=== PATIENT | male | born 1995 ===

== ENCOUNTER 2020-07-05 13:34 | Emergency (ER) | payer OTHER ==
[2020-07-05 13:47] VITALS: BP 113/63
--- NOTE | 2020-07-05 16:15 | ER Document Report ---
HPI - HPI Time Seen by Provider: 07/05/20 14:14 Pain Level: 5 Notes: Otherwise healthy 24-year-old male presents with right hand pain that began just before arrival. He states that he did not injure the hand in any way. He states he started having pain in the hand and he feels like there is some swelling. He denies any fever, chills or any other abnormalities. He has not had this type of pain before. He did not take any medication for his pain prior to coming to the emergency department. He did not apply ice, heat or elevate. - ROS Systems Reviewed and Negative: Yes All other systems reviewed and negative - REPRODUCTIVE Reproductive: DENIES: : - MUSCULOSKELETAL Musculoskeletal: REPORTS: Extremity pain - Right hand Past Medical History - General Information source: Patient - Social History Smoking Status: Never Smoker Frequency of alcohol use: None Drug Abuse: None Family History: None Patient has homicidal ideation: No - Medical History Medical History: Negative Surgical Hx: Negative - Immunizations Immunizations up to date: Yes Vertical Provider Document - CONSTITUTIONAL Notes: PHYSICAL EXAMINATION: GENERAL: Well-appearing, well-nourished and in no acute distress. HEAD: Atraumatic, normocephalic. EYES: Pupils equal round extraocular movements intact, conjunctiva are normal. ENT: Nares patent NECK: Normal range of motion LUNGS: No respiratory distress Musculoskeletal: Normal range of motion to right hand and all digits. Mild swelling noted to second through fifth digits, cap refill less than 3 seconds, strong radial pulse. No acute abnormality noted. NEUROLOGICAL: Normal speech, normal gait. PSYCH: Normal mood, normal affect. SKIN: Warm, Dry, normal turgor, no rashes or lesions noted. Course - Re-evaluation Re-evalutation: No abnormality noted on x-ray. Exam unremarkable other than very mild swelling. No evidence of cellulitis or puncture wounds. Patient will be encouraged to do conservative treatment with Tylenol and ibuprofen, follow-up with primary if pain worsens. - Vital Signs Vital signs: Temp Pulse Resp BP Pulse Ox 98.5 F 78 16 113/63 98 07/05/20 13:45 07/05/20 13:45 07/05/20 13:45 07/05/20 13:45 07/05/20 13:45 Discharge - Discharge Clinical Impression: Right hand pain Condition: Stable Disposition: HOME, SELF-CARE Additional Instructions: There was no abnormality visualized with the bones of the x-ray of your hand. At this point I would recommend alternating Tylenol and ibuprofen. Apply some ice. Elevate the hand. If symptoms persist please follow-up with your primary care provider in the next 3 to 5 days. If symptoms worsen significantly that is you develop worsening swelling in your hand or you start having redness in your hand or develop fevers please return to the emergency department.
--- NOTE | 2020-07-05 18:19 | RADIOLOGY REPORT (SQ) ---
EXAM DESCRIPTION: HAND RIGHT 3 VIEWS IMAGES COMPLETED DATE/TIME: 07/05/2020 2:34 pm REASON FOR STUDY: hand pain/swelling, no injury COMPARISON: None. EXAM PARAMETERS: NUMBER OF VIEWS: Three views. TECHNIQUE: AP, lateral and oblique radiographic images acquired of the right hand. LIMITATIONS: None. FINDINGS: MINERALIZATION: Normal. BONES: No acute fracture or dislocation. No worrisome bone lesions. No significant osteophytes. JOINTS: No erosions. No gi-articular osteopenia. No chondrocalcinosis. SOFT TISSUES: No swelling. No calcifications. OTHER: No other significant finding. IMPRESSION: NEGATIVE STUDY OF THE RIGHT HAND. NO EXPLANATION FOR PAIN. TECHNICAL DOCUMENTATION: JOB ID: [id number] 2010 [employer]- All Rights Reserved Reading location - IP/workstation name: [email or web address]
== END 2020-07-05 17:02 | disposition home or self-care (01) ==
LOC: ER 13:34
DX: M79.641 Pain in right hand (principal); M79.89 Other specified soft tissue disorders
CPT/HCPCS: 99283